=== PATIENT | male | born 1970 | race Caucasian/White ===

== ENCOUNTER 2017-04-27 23:15 | Observation (INO) | payer OTHER ==
[2017-04-27 23:45] LABS: #Basophils 0.1 thou/uL (0.0-0.2); #Eosinphils 0.2 thou/uL (0.0-0.7); #Lymphocytes 2.9 thou/uL (1.20-3.40); #Monocytes 0.4 thou/uL (0.11-0.59); #Neutrophils 2.9 thou/uL (1.40-6.50); %Basophils 1.3 % (0.0-1.0); %Eosinophils 3.5 % (0.0-10.0); %Lymphocytes 44.3 % (21.0-51.0); %Monocytes 6.3 % (0.0-10.0); %Neutrophils 44.5 % (42.0-75.0); Mean Corpuscular HGB CONC 33.2 g/dL (32.0-36.0); Mean Corpuscular Volume 87.4 fl (80.0-94.0); Mean Platelet Volume 9.2 fL (7.4-10.4); Platelet Count 164 thou/uL (130-400); RBC Distribution Width 10.9 % (11.5-14.5); Red Blood Cell (RBC) Count 5.16 mill/uL (4.70-6.10); White Blood Cell (WBC) Count 6.5 thou/uL (4.8-10.8)
--- NOTE | 2017-04-27 23:48 | RAD ---
PORTABLE CHEST ONE VIEW 04/27/17 at 11:38 p.m. HISTORY: Chest pain. FINDINGS: The heart size is normal. No focal areas of consolidation, pneumothorax or pleural effusions are seen . IMPRESSION: No radiographic evidence of acute cardiopulmonary process. POS: [facility]
[2017-04-28] LABS: ALT (SGPT) 27 U/L (8-55); AST (SGOT) 18 U/L (5-34); Alkaline Phosphatase 80 U/L (40-150); Anion Gap 14 mmol/L (10-20); BUN (Urea Nitrogen) 15 mg/dL (8.9-20.6); Bilirubin, Total 0.5 mg/dL (0.2-1.2); CK (CPK) 390 U/L (30-200); Calc. Creatinine Clearance 0 mL/min (70-130); Calcium 9.6 mg/dL (7.8-10.44); Carbon Dioxide 26 mmol/L (22-29); Chloride 103 mmol/L (98-107); Estimated GFR-MDRD 76; Glucose 213 mg/dL (70-105); Lipase 38 U/L (8-78); Potassium 4.1 mmol/L (3.5-5.1); Sodium 139 mmol/L (136-145)
[2017-04-28 00:01] LABS: CKMB 2.9 ng/mL (0-6.6); Troponin I 0.015 ng/mL (< 0.028)
[2017-04-28 03:05] LABS: Troponin I Less than 0.010 ng/mL (< 0.028)
[2017-04-28 06:04] LABS: Troponin I 0.035 ng/mL (< 0.028)
[2017-04-28 10:28] LABS: Troponin I Less than 0.010 ng/mL (< 0.028)
[2017-04-28] MEDS ORDERED: Acetaminophen 325 MG TAB PO PRN (13:07)
[2017-04-28] MEDS ORDERED: Senokot 8.6 MG TAB PO PRN (13:07)
[2017-04-28] MEDS ORDERED: Calcium Carbonate 500 MG ChewTAB PO PRN (13:07)
[2017-04-28] MEDS ORDERED: Nitroglycerin 0.4 MG TAB (25 Tab Bottle) PO PRN (13:07)
[2017-04-28] MEDS ORDERED: Ondansetron HCl/PF 4 MG/2 ML Vial IVP PRN (13:07)
[2017-04-28] MEDS ORDERED: Ondansetron ODT 4 MG TAB PO PRN (13:07)
[2017-04-28 13:35] LABS: Troponin I 0.032 ng/mL (< 0.028)
--- NOTE | 2017-04-28 18:20 | PDOC.EVN ---
Event Note - Event Note Event Note: Patient was not seen this admission. Patient was at [facility] overnight and left AMA from the ER.
[2017-04-28] MEDS ORDERED: Docusate 100 MG CAP PO SCH (21:00)
[2017-04-28] MEDS ORDERED: Famotidine 20 MG TAB PO SCH (21:00)
[2017-04-29 08:11] LABS: Cardiac Risk 4.9 (Less than 4.5)
[2017-04-29] MEDS ORDERED: Aspirin 325 MG TAB PO SCH (09:00)
--- NOTE | 2017-05-29 18:24 | EKG ---
Test Reason : Blood Pressure : / mmHG Vent. Rate : 063 BPM Atrial Rate : 063 BPM P-R Int : 192 ms QRS Dur : 096 ms QT Int : 388 ms P-R-T Axes : 047 025 020 degrees QTc Int : 397 ms Normal sinus rhythm Normal ECG Confirmed by VAUGHN WISE ([id number]), newspaper copy editor DMITRIY GONZALEZ ([id number]) on 05/29/2017 6:23:59 PM Referred By: Confirmed By:VAUGHN WISE
--- NOTE | 2017-05-29 18:24 | EKG ---
Test Reason : Blood Pressure : / mmHG Vent. Rate : 061 BPM Atrial Rate : 061 BPM P-R Int : 180 ms QRS Dur : 094 ms QT Int : 388 ms P-R-T Axes : 049 023 039 degrees QTc Int : 390 ms Normal sinus rhythm Normal ECG Confirmed by VAUGHN WISE ([id number]), website/blog editor DMITRIY GONZALEZ ([id number]) on 05/29/2017 6:23:58 PM Referred By: ANDERS Confirmed By:VAUGHN WISE
--- NOTE | 2017-05-29 18:24 | EKG ---
Test Reason : Blood Pressure : / mmHG Vent. Rate : 061 BPM Atrial Rate : 061 BPM P-R Int : 200 ms QRS Dur : 094 ms QT Int : 380 ms P-R-T Axes : 060 023 037 degrees QTc Int : 382 ms Normal sinus rhythm Normal ECG Confirmed by VAUGHN WISE ([id number]), material expeditor DMITRIY GONZALEZ ([id number]) on 05/29/2017 6:23:59 PM Referred By: Confirmed By:VAUGHN WISE
== END 2017-04-28 14:00 | disposition left against medical advice (07) ==
LOC: SCSER 23:15 → SCSEROBS 04-28 00:24 → 2SW 04-28 13:44 → SCSEROBS 04-28 14:00
PROVIDERS: ADMIT Internal Medicine; ATTEND Internal Medicine
DX: R07.9 Chest pain, unspecified (principal); E03.9 Hypothyroidism, unspecified; E11.9 Type 2 diabetes mellitus without complications; E78.5 Hyperlipidemia, unspecified; F17.220 Nicotine dependence, chewing tobacco, uncomplicated; Z53.21 Procedure and treatment not carried out due to patient leaving prior to being seen by health care provider; Z79.84 Long term (current) use of oral hypoglycemic drugs; Z79.899 Other long term (current) drug therapy
CPT/HCPCS: 36415; 71045; 80053; 80061; 82550; 82553; 83690; 84484; 85025; 93005; 94760; 96360

== ENCOUNTER 2017-05-10 20:41 | Emergency (ER) | payer OTHER ==
[2017-05-10 21:55] LABS: #Basophils 0.1 thou/uL (0.0-0.2); #Eosinphils 0.2 thou/uL (0.0-0.7); #Lymphocytes 3.1 thou/uL (1.20-3.40); #Monocytes 0.5 thou/uL (0.11-0.59); #Neutrophils 3.4 thou/uL (1.40-6.50); %Eosinophils 3.4 % (0.0-10.0); %Monocytes 6.3 % (0.0-10.0); %Neutrophils 46.3 % (42.0-75.0); Hemoglobin 15.2 g/dL (14.0-18.0); Mean Corpuscular Hemoglobin 30.7 pg (27.0-31.0); Mean Corpuscular Volume 90.4 fl (80.0-94.0); Mean Platelet Volume 8.8 fL (7.4-10.4); Platelet Count 180 thou/uL (130-400); RBC Distribution Width 11.5 % (11.5-14.5); Red Blood Cell (RBC) Count 4.96 mill/uL (4.70-6.10); White Blood Cell (WBC) Count 7.4 thou/uL (4.8-10.8)
[2017-05-10] MEDS ORDERED: Methocarbamol 500 MG TAB PO SCH (22:15)
[2017-05-10] MEDS ORDERED: Ketorolac Tromethamine 60 MG/2 ML VIAL ONE (22:15)
[2017-05-10 22:20] LABS: CKMB 3.2 ng/mL (0-6.6)
[2017-05-10 22:26] LABS: ALT (SGPT) 27 U/L (8-55); Albumin 4.2 g/dL (3.5-5.0); Alkaline Phosphatase 68 U/L (40-150); Anion Gap 13 mmol/L (10-20); BUN (Urea Nitrogen) 16 mg/dL (8.9-20.6); Bilirubin, Total 0.6 mg/dL (0.2-1.2); CK (CPK) 428 U/L (30-200); Calc. Creatinine Clearance 0 mL/min (70-130); Calcium 9.8 mg/dL (7.8-10.44); Carbon Dioxide 26 mmol/L (22-29); Chloride 103 mmol/L (98-107); Estimated GFR-MDRD 76; Glucose 125 mg/dL (70-105); Potassium 4.4 mmol/L (3.5-5.1); Protein, Total 7.2 g/dL (6.0-8.3); Sodium 138 mmol/L (136-145)
[2017-05-10 22:49] LABS: AST (SGOT) 18 U/L (5-34)
== END 2017-05-11 00:26 | disposition home or self-care (01) ==
LOC: ERS 20:41
DX: M54.10 Radiculopathy, site unspecified (principal); E03.9 Hypothyroidism, unspecified; E11.9 Type 2 diabetes mellitus without complications; E78.5 Hyperlipidemia, unspecified; Z79.84 Long term (current) use of oral hypoglycemic drugs; Z79.899 Other long term (current) drug therapy; F17.220 Nicotine dependence, chewing tobacco, uncomplicated
CPT/HCPCS: 36415; 80053; 82550; 82553; 84484; 85025; 93005; 96372; J1885

== ENCOUNTER 2017-05-13 14:27 | Outpatient (CLI) | payer OTHER ==
--- NOTE | 2017-05-13 16:09 | RAD ---
CERVICAL SPINE THREE VIEWS: 05/13/17 HISTORY: Neck pain with left arm radiculopathy. FINDINGS: There is straightening of the normal lordotic curvature of the cervical spine on the lateral view. Ve rtebral body heights are maintained. No acute fracture, dislocation, or aggressive osseous erosions a re visible. IMPRESSION: No acute osseous abnormalities are demonstrated. POS: [facility]
== END 2017-05-13 14:28 | disposition home or self-care (01) ==
LOC: SCSRAD 14:27
PROVIDERS: ATTEND Family Medicine
DX: M54.12 Radiculopathy, cervical region (principal)
CPT/HCPCS: 72040

== ENCOUNTER 2018-10-19 08:31 | Outpatient (CLI) | payer OTHER ==
--- NOTE | 2018-10-19 09:51 | MRI ---
MRI LUMBAR SPINE: Multiplanar, multisequential imaging lumbar spine obtained. INDICATION: Low back pain. Right lower extremity radiation. FINDINGS: The lumbar vertebrae maintain normal height and alignment. Disk spaces are preserved. No significant disk bulge or disk abnormality seen at L1-2, L2-3, or L3-4 levels. There is mild face t hypertrophy at these levels; however, no central canal or foraminal stenosis apparent. At L4-5, there is an annular tear with broad-based disk bulge/protrusion flattening the anterior thec al sac. Mild facet hypertrophy. Very mild central canal stenosis. Mild foraminal encroachment slig htly more prominent on the right due to asymmetric disk bulge. At L5-S1, mild disk bulge abuts the anterior thecal sac. Mild facet hypertrophy. No significant daisy tral canal or foraminal stenosis apparent. IMPRESSION: 1. Annular fissure with disk bulge/protrusion at L4-5 flattens the anterior thecal sac. Mild janet inal encroachment at this level more prominent on the right. Very mild central canal stenosis. 2. Mild diffuse disk bulge at L5-S1 as described. POS: [facility]
== END 2018-10-19 08:32 | disposition home or self-care (01) ==
LOC: SCSMRI 08:31
PROVIDERS: ATTEND Psychiatry & Neurology Neurology
DX: S74.00XA Injury of sciatic nerve at hip and thigh level, unspecified leg, initial encounter (principal); M51.26 Other intervertebral disc displacement, lumbar region; M48.061 Spinal stenosis, lumbar region without neurogenic claudication; M51.27 Other intervertebral disc displacement, lumbosacral region
CPT/HCPCS: 72148

== ENCOUNTER 2019-07-14 05:59 | Day surgery (SDC) | payer OTHER ==
[2019-07-13 11:08] VITALS: BMI 28.8
[2019-07-14] MEDS ORDERED: Bacitracin Zinc Ointment 30 gm TUBE ONE (06:12)
[2019-07-14] MEDS ORDERED: Bupivacaine PF 0.5% 30 ML VIAL ONE (06:12)
[2019-07-14] MEDS ORDERED: Betamet Acet/Betamet Na Ph 30 MG/5 ML VIAL ONE (06:12)
[2019-07-14] MEDS ORDERED: Thrombin 5000 UNITS/5 ML VIAL ONE (06:36)
[2019-07-14 06:50] LABS: #Basophils 0.1 thou/uL (0.0-0.2); #Eosinphils 0.2 thou/uL (0.0-0.7); #Lymphocytes 3.2 thou/uL (1.20-3.40); #Monocytes 0.4 thou/uL (0.11-0.59); #Neutrophils 3.3 thou/uL (1.40-6.50); %Basophils 1.2 % (0.0-1.0); %Lymphocytes 44.5 % (21.0-51.0); %Monocytes 5.4 % (0.0-10.0); %Neutrophils 45.9 % (42.0-75.0); Hemoglobin 15.4 g/dL (14.0-18.0); Mean Corpuscular HGB CONC 35.1 g/dL (32.0-36.0); Mean Corpuscular Hemoglobin 32.2 pg (27.0-31.0); Mean Corpuscular Volume 91.5 fL (78.0-98.0); Mean Platelet Volume 9.5 fL (7.4-10.4); Platelet Count 156 thou/uL (130-400); RBC Distribution Width 11.7 % (11.5-14.5); Red Blood Cell (RBC) Count 4.78 mill/uL (4.70-6.10); White Blood Cell (WBC) Count 7.2 thou/uL (4.8-10.8)
[2019-07-14] MEDS ORDERED: Fentanyl 100 MCG/2 ML VIAL ONE ×2 (06:55→07:01)
[2019-07-14] MEDS ORDERED: Midazolam HCl 2 mg/2 ml Vial ONE ×3 (06:55→07:01)
[2019-07-14] MEDS ORDERED: Propofol 1,000 MG/100 ML VIAL IV ONE (06:55)
[2019-07-14] MEDS ORDERED: Ketorolac Tromethamine 30 MG/ML VIAL ONE (09:14)
[2019-07-14] MEDS ORDERED: PROPOFOL 200 MG/20 ML VIAL ONE (09:26)
[2019-07-14] MEDS ORDERED: Bupivacaine HCl 0.5%/Epinephrine 1:200,000/PF 30 ml Vial ONE (09:26)
--- NOTE | 2019-07-14 09:34 | OP ---
DATE OF PROCEDURE: 07/14/2019 PREOPERATIVE DIAGNOSES: 1. Right index finger glass, foreign body. 2. Right index finger glass, small foreign body granuloma. PROCEDURES PERFORMED: 1. Excision of glass foreign body. 2. Excision of glass foreign body granuloma. FINDINGS: Glass 4 mm long, 1 mm wide at its tip, 2 mm at its base, triangular shaped piece of glass buried underneath a reactive granuloma of approximately 5 mm. TOURNIQUET TIME: 14 minutes. ESTIMATED BLOOD LOSS: 10 mL. ANESTHESIA: Combination of local infiltrative block and supraclavicular block. ANESTHESIOLOGIST: Danilo. DESCRIPTION OF PROCEDURE: After successful anesthesia, as listed above, the patient had the time-out done appropriately. Limb prepped and draped. We exsanguinated the limb, inflated tourniquet to 250 mmHg pressure. Then, in the area where he had this pain, a small thickening could be felt, so we made a 1 cm incision just radial to the most prominent palmar aspect of the tuft of the right index finger. We carried through skin and subcutaneous tissue, being felt some thickening, but it took several minutes of dissection to discover a small sliver of glass, the size of which is described "findings" above. Then, there was a granuloma around, which we excised as well. The glass sliver was placed in a container and taken away from the field. The tourniquet was deflated. Hemostasis was obtained. We irrigated the wound with 1 L normal saline, and closed with interrupted 5-0 nylon. Bulky dressing was applied. The patient left the operating room without evidence of anesthetic or operative complication. Job ID: [id number]
== END 2019-07-14 09:54 | disposition home or self-care (01) ==
LOC: SDC 05:59
PROVIDERS: ATTEND Orthopaedic Surgery Hand Surgery
PROC: 0JBF0ZZ Excision of Left Upper Arm Subcutaneous Tissue and Fascia, Open Approach (ICD-10-PCS; principal; 2019-07-14)
DX: M60.241 Foreign body granuloma of soft tissue, not elsewhere classified, right hand (principal); E03.9 Hypothyroidism, unspecified; E11.9 Type 2 diabetes mellitus without complications; E78.5 Hyperlipidemia, unspecified; Z18.81 Retained glass fragments; Z79.84 Long term (current) use of oral hypoglycemic drugs; Z79.899 Other long term (current) drug therapy
CPT/HCPCS: 36415; 85025; J0670; J0690; J0702; J1885; J2250; J2704; J3010; J3490; S0020